=== PATIENT | male | born 1975 | race African-American/Black ===

== ENCOUNTER 2016-12-29 16:44 | Emergency (ER) | payer MEDICARE, OTHER ==
[2016-12-29 16:04] LABS: BASOPHILS 0.7 %; BASOPHILS ABSOLUTE 0.05 10/3/uL (0.0-0.16); EOSINOPHILS 1.8 %; EOSINOPHILS ABSOLUTE 0.13 10/3/uL (0.0-0.53); HEMATOCRIT 46.2 % (40.0-51.0); IMMATURE GRANULOCYTES 0.1 %; IMMATURE GRANULOCYTES ABSOLUTE 0.01 10/3/uL (0.0-0.11); LYMPHOCYTES 42.8 %; LYMPHOCYTES ABSOLUTE 3.07 10/3/uL (0.67-4.30); MEAN CORPUS HGB CONC 34.6 g/dL (32.0-36.0); MEAN CORPUSCULAR HEMOGLOB 30.2 pg (26.0-34.0); MEAN CORPUSCULAR VOLUME 87.2 fL (80-100); MEAN PLATELET VOLUME 10.6 fL (9.2-13.0); MONOCYTES 9.9 %; MONOCYTES ABSOLUTE 0.71 10/3/uL (0.21-1.20); NEUTROPHILS 44.7 %; PLATELET COUNT 245 10/3/uL (150-400); RBC DISTRIBUTION WIDTH 13.1 % (12.0-16.0); WHITE BLOOD CELLS 7.2 10/3/uL (4.5-10.5)
[2016-12-29 16:06] LABS: MANUAL DIFF NO %
[2016-12-29 16:18] LABS: CALCIUM, SERUM 8.5 MG/DL (8.5-10.4); CHLORIDE, SERUM 94 MMOL/L (96-112); CO2 (CARBON DIOXIDE) 33 MMOL/L (24-34); CREATININE 1.42 MG/DL (0.70-1.30); GFR AFRICAN AMERICAN 71 ML/MIN (>=60); GFR NON AFRICAN AMERICAN 61 ML/MIN (>=60); POTASSIUM, SERUM 3.3 MMOL/L (3.5-5.3); SODIUM, SERUM 138 MMOL/L (135-148)
[2016-12-29 16:19] LABS: BUN (BLOOD UREA NITROGEN) 10 MG/DL (6-23); GLUCOSE, SERUM 302 MG/DL (60-99)
== END 2016-12-29 20:14 | disposition home or self-care (01) ==
LOC: ER 16:44
PROVIDERS: Nurse Practitioner Family
DX: I10 Essential (primary) hypertension (principal); E87.6 Hypokalemia; E11.9 Type 2 diabetes mellitus without complications; F17.200 Nicotine dependence, unspecified, uncomplicated; Z91.19 Patient's noncompliance with other medical treatment and regimen
CPT/HCPCS: 73610-RT; 80048; 85025; 99285; A9270-GY

== ENCOUNTER 2017-01-10 17:17 | Inpatient (IN) | payer MEDICARE, OTHER ==
[2017-01-09 16:59] LABS: HEMATOCRIT 46.4 % (40.0-51.0); HEMOGLOBIN 16.1 g/dL (13.6-17.8); MEAN CORPUS HGB CONC 34.7 g/dL (32.0-36.0); MEAN CORPUSCULAR HEMOGLOB 30.1 pg (26.0-34.0); MEAN CORPUSCULAR VOLUME 86.9 fL (80-100); MEAN PLATELET VOLUME 11.1 fL (9.2-13.0); PLATELET COUNT 276 10/3/uL (150-400); RED CELL COUNT 5.34 10/6/uL (4.7-6.1); WHITE BLOOD CELLS 7.4 10/3/uL (4.5-10.5)
[2017-01-09 17:13] LABS: CALCIUM, SERUM 9.4 MG/DL (8.5-10.4); CHLORIDE, SERUM 92 MMOL/L (96-112); CO2 (CARBON DIOXIDE) 34 MMOL/L (24-34); CREATININE 1.89 MG/DL (0.70-1.30); GFR AFRICAN AMERICAN 50 ML/MIN (>=60); GFR NON AFRICAN AMERICAN 43 ML/MIN (>=60); SODIUM, SERUM 136 MMOL/L (135-148)
[2017-01-09 17:47] LABS: BUN (BLOOD UREA NITROGEN) 14 MG/DL (6-23); GLUCOSE, SERUM 426 MG/DL (60-99); POTASSIUM, SERUM 2.9 MMOL/L (3.5-5.3)
--- NOTE | ~2017-01-10 | CN ---
Consultation Report [facility] [address] [place]. [address] NAME: ANDRÉS MOODY : 75 STATUS : ADM IN PAT#: [id number] AGE: 41 ADM/REG DATE : 01/10/17 MR#: [id number] REPORT SERV DATE: 01/12/17 DICTATED BY: MARK FARIAS DATE: 01/11/17 REPORT STATUS : Draft TRANSCRIBED BY: EWELINA DATE: 01/11/17 INFECTIOUS DISEASE CONSULT DATE OF CONSULTATION: REASON FOR CONSULT: Chronic osteomyelitis. HISTORY OF PRESENT ILLNESS: A 41 years old black male with diabetes, hypertension, asthma who was admitted for chronic intermittent drainage from right lower leg. In 2012, he had an open right tibia and fibula fracture when he jumped over a fence and landed in dirt and grass. He was taken quickly to the hospital. It sounds like he had an ORIF at [facility]. He initially had an external fixator. At some point, he developed an infection. On 08/13/2013, he had an open wound to one of the hardware/pilon. This appeared to extend to the bone. We do not have details of what might have been cultured. He had bone debridement. There is a mention of getting Infectious Disease Consult although the patient does not recall seeing any infection specialist. In February of 2014, he had surgical debridement, again removal of most of the hardware. Multiple cultures were done as well. Again, I do not have any culture results or Infectious Disease consult. The patient remembers getting 6 weeks of IV vancomycin. The surgical debridement left him with a large wound, and [facility] Somewhere in the fall of 2013, he was incarcerated and sent to [facility]. While there, he was seen at [facility], and it sounds like he had wound care. I do not know if he had any more antibiotics. He was released in September 2016. He describes intermittent episodes of drainage at the previous right medial lower leg wound. There is no wound now, just fistulous openings. They were drained spontaneously, then close, and he would form a swollen area that will eventually burst open again. He does not sound like he has received antibiotics for this, and he has not seen his surgeon since the [facility] release. He had a visit to the emergency room here on the 12/29/2016, but there is no culture obtained at that time. There is an x-ray of the right ankle that showed areas of lucency within the tibia and the bone deformity from the old fracture. The patient was sent to see Dr. Goncalves at [facility] and from there he was sent for admission on the january. The patient describe recent bloody drainage from his leg, pain with weightbearing but no fever, no acute shortness of breath, nausea, diarrhea or urinary symptoms. Upon admission, his glucose was 420, potassium 2.9, creatinine 1.9. He was started on vancomycin and Zosyn. Blood cultures were done. Yesterday, the wound or the fistula started draining, and a culture was sent. An MRI showed an ulcer that extends to the tibia where there was cortical breakdown and fluid into the medullary canal. There is also some bone sequestrum and soft tissue edema. The patient has been afebrile. Further lab work showed a procalcitonin of 0.1 yesterday, creatinine improved to 1.6. Potassium is still low at 3.0, glucose still high. Liver enzymes within normal limits. CRP 12, WBC 6, and hemoglobin 14. PAST MEDICAL HISTORY: As I mentioned above plus left knee surgery as a teenager. He had a Consultation Report [address] [address] NAME: ANDRÉS MOODY : 75 STATUS : ADM IN [facility]#: [id number] AGE: 41 ADM/REG DATE : 01/10/17 MR#: [id number] REPORT SERV DATE: 01/12/17 DICTATED BY: MARK FARIAS DATE: 01/11/17 REPORT STATUS : Draft TRANSCRIBED BY: EWELINA DATE: 01/11/17 history of Chlamydia at some point. He reports no history of HIV or hepatitis. SOCIAL HISTORY: Apparently, he smokes and drinks alcohol. ALLERGIES: NONE. FAMILY HISTORY: Of diabetes, kidney disease, and hypertension. MEDICATIONS ON ADMISSION: Amlodipine, hydrochlorothiazide, lisinopril, and metformin. PHYSICAL EXAMINATION: GENERAL: He is alert, awake. LUNGS: Clear to auscultation. HEART: Distant sounds. Regular rhythm. ABDOMEN: Obese, nontender. EXTREMITIES: Left foot without any lesions. Peripheral IV without redness. Right lower leg medially, there is deformity with bone prominence and maybe some swelling. This area has a couple of small fistulous openings with purulent drainage. He has good range of motion in the ankle without pain. Right foot without any wounds. ASSESSMENT AND PLAN: 1. Probable chronic right medial distal tibial osteomyelitis. 2. History of right ankle open fracture 2012 treated with initially external fixator then internal fixation, the site got infected. He had couple of surgical debridement for it but they do not have any culture results or Infectious Disease notes. The patient remembers being treated with vancomycin for six weeks. 3. Diabetes and hypertension. I discussed with Dr. Lewis. I suggested surgical debridement. I would hold the antibiotics preop. I would obtain operative cultures at surgery time from the bone. Question if this is curable after probably long-term infection and whether he has enough stable bone. We will try to request records from [facility]. The patient also agreed to be screened for HIV and hepatitis. CHECO/EWELINA Mark Farias M.D. / [id number] CC: Todd Goncalves D.O.
--- NOTE | ~2017-01-10 | CN ---
Consultation Report [facility] [address] [place]. [address] NAME: ANDRÉS MOODY : 75 STATUS : DIS IN PAT#: [id number] AGE: 41 ADM/REG DATE : 01/10/17 MR#: [id number] REPORT SERV DATE: 01/12/17 DICTATED BY: LANRE MARTE DATE: 01/12/17 REPORT STATUS : Draft TRANSCRIBED BY: EWELINA DATE: 01/12/17 CONSULTATION DATE OF CONSULTATION: 01/11/2017 REASON FOR CONSULTATION: Right ankle osteomyelitis. HISTORY OF PRESENT ILLNESS: The patient is a 41-year-old male who describes a three and a half year history of a compound open ankle fracture. The patient describes external fixation, which was initially applied with debridement and then further ORIF following external fixation. The patient relates he had been on an antibiotics and had an "allergy" to the hardware. The patient had hardware removed and further debridements. The patient states that he was incarcerated for two years, and over two years, had received antibiotics during that time for the wound. The patient relates draining to the wound, but denies nausea, vomiting, fever, or chills. Denied red streaking. Relates mild discomfort to the leg. The patient has been on IV antibiotics since admission. He has had an MRI as well. PAST MEDICAL HISTORY: Includes uncontrolled diabetes and hypertension. SOCIAL HISTORY: Relates alcohol and tobacco use. ALLERGIES: NO KNOWN DRUG ALLERGIES. FAMILY HISTORY: Includes diabetes, hypertension. MEDICATIONS: Lengthy list of medications were reviewed in the chart. PAST SURGICAL HISTORY: Includes right ankle surgery. REVIEW OF SYSTEMS: No other pertinent findings on review of systems. Denies nausea, vomiting, fever, or chills. Denies chest pain. Relates minimal leg pain and draining wound as previously described. PHYSICAL EXAMINATION: GENERAL: The patient is seen at bedside, resting comfortably. The patient is a well- developed male, alert and oriented x3. LUNGS: Unlabored breathing with normal respiratory effort. HEENT: Normocephalic and atraumatic. No visible drainage. CARDIOVASCULAR: Palpable pedal pulses +2/4. Regular rate. Capillary refill time less than three seconds, digits 1 through 10 tested. ABDOMEN: Nondistended. DERMATOLOGICAL: Scarring to the anterior aspect of the right ankle with approximately 3 x [address] [facility] [address] [place]. [address] NAME: ANDRÉS MOODY : 75 STATUS : DIS IN PAT#: [id number] AGE: 41 ADM/REG DATE : 01/10/17 MR#: [id number] REPORT SERV DATE: 01/12/17 DICTATED BY: LANRE MARTE DATE: 01/12/17 REPORT STATUS : Draft TRANSCRIBED BY: EWELINA DATE: 01/12/17 mm draining purulent ulceration. There is probing present. There is no notable erythema. There is no increased skin temperature. There is no crepitus within the soft tissues present. MRI shows open sinus tract/sequestrum to the anterior distal tibia. Positive for osteomyelitis. Sedimentation rate 9. White count 6.3. ASSESSMENT: Chronic osteomyelitis with draining sinus tract/sequestrum, uncontrolled diabetes, smoker. Lengthy discussion with the patient discussing options including bone debridement with antibiotic bead placement. I have the antibiotics and right [id number] amputation. The wound itself is stable at this time, and there is no leukocytosis appreciated. We will consult Infectious Disease as well, and the patient will consider options, and I will follow up with the patient tomorrow. ALEYDA/EWELINA Tyrese Marte D.P.M. / [id number] CC: Todd Goncalves D.O.
--- NOTE | ~2017-01-10 | HP ---
History And Physical [place] [id number] [place]. [address] NAME: ANDRÉS HILLIARD : 75 STATUS : ADM IN [facility]#: [id number] AGE: 41 ADM/REG DATE : 01/10/17 MR#: [id number] REPORT SERV DATE: 01/10/17 DICTATED BY: DATE: REPORT STATUS : Draft TRANSCRIBED BY: MODL DATE: 01/10/17 DATE OF ADMISSION: 01/10/2017 The patient is admitted to the [facility] Hospitalist Service. CHIEF COMPLAINT: Right ankle pain and drainage. HISTORY OF PRESENT ILLNESS: Mr. Hilliard is a 41-year-old -[place] male, who sustained a trauma to his right ankle with what he thinks was a fracture of both tibia and fibula in 2012. This necessitated surgical fusion with hardware by Dr. William Buitrago at [facility]. Subsequently, the hardware became infected, requiring a revision and some hardware removal in 2013. The patient has had a chronic fracture deformity since then as well as some difficulty with wound healing along the medial aspect of the ankle. The patient recently has been incarcerated and with not receiving regular care for the ankle. He would notice some days where swelling and warmth were increased and where the pain was increasing. The patient was [facility] at the end of September, and his symptoms continued to get worse with occasional spontaneous drainage from the medial aspect of the right ankle. The patient went to the [facility] Emergency Department on 12/29/2016 to be evaluated and had labs and imaging, which were largely normal although "could not exclude chronic osteomyelitis." The patient does not have a primary care provider, and so, followup was arranged for him with Dr. Todd Goncalves in [place]. Their first appointment was this week, and Dr. Goncalves felt that the patient required direct admission to the Hospitalist Service for concerns of acute right ankle cellulitis with possible acute osteomyelitis or septic arthritis. The patient has not been on any antibiotics recently and states that it has not been since 2013 that he has required antibiotics. He denies a specific history of MRSA, although is unclear on what pathogens were involved in his prior hardware and skin and soft tissue infections. He denies any purulent drainage from the ankle, but has noted more of a serosanguineous or bloody-type discharge. He does have increased pain particularly when bearing weight and particularly along the lateral aspect of the ankle. The pain also extends somewhat into the heel and up the lateral part of the duckworth. He denies any fevers or chills and has not had any other systemic symptoms such as nausea, vomiting, fatigue, malaise, or weakness. He does have a history of diabetes and has not been keeping regular check on his blood sugars recently. His blood sugar when checked at Dr. Goncalves's office was in excess of 400. The patient takes metformin for blood sugars, but does not check his blood sugar regularly. He has never been on insulin. He was diagnosed with diabetes five years ago. Most recently, he has been experiencing polyuria and polydipsia as well as nocturia. He denies any changes in vision and has not recently experienced any neuropathic symptoms or been told that he has any difficulties with his kidneys. The patient is referred to the Hospitalist Service for the uncontrolled diabetes as well as History And Physical [address] [address] NAME: ANDRÉS HILLIARD TAYLA : 75 STATUS : ADM IN [facility]#: [id number] AGE: 41 ADM/REG DATE : 01/10/17 MR#: [id number] REPORT SERV DATE: 01/10/17 DICTATED BY: DATE: REPORT STATUS : Draft TRANSCRIBED BY: MODAlondra DATE: 01/10/17 acute concerns of cellulitis and osteomyelitis as above. PAST MEDICAL HISTORY: 1. Uncontrolled diabetes mellitus type 2, hemoglobin A1c 11.1. 2. Hypertension, recently out of medications, uncontrolled with blood pressure of 177/100 in the office today. 3. Ongoing tobacco abuse, smoking four to five cigarettes per day for the past 15 years. 4. History of asthma. 5. History of daily alcohol use. PAST SURGICAL HISTORY: 1. Includes the surgeries on the right ankle in 2012 and 2013 as outlined above. 2. Left knee surgery when the patient was 15 years old. ALLERGIES: NO KNOWN DRUG ALLERGIES. MEDICATIONS: Home medications include amlodipine 10 mg p.o. daily, hydrochlorothiazide 25 mg p.o. daily, lisinopril 40 mg p.o. daily, albuterol MDI two puffs every four to six hours as needed for shortness of breath. The patient has recently been re-initiated on these medications after running out of them for several months. SOCIAL HISTORY: The patient is currently living with his mother. He is on disability. He is smoking daily as above and drinking alcohol daily anywhere from two beers to sharing a pint of liquor with friends. He denies any illicit substance use. He was recently imprisoned for approximately a year and was released in September of 2016. FAMILY HISTORY: Pertinent for diabetes and hypertension. His mother is on hemodialysis. PHYSICAL EXAMINATION: VITAL SIGNS: Blood pressure 177/103, pulse 103, respiration rate 12, oxygen saturations 100% on room air, temperature 98.7. GENERAL: This is a well-developed, well-nourished, -[place] male, looking his stated, and in no acute distress. Alert and oriented in three dimensions. Pleasant. HEENT: Normocephalic, atraumatic. Pupils are equally round and reactive to light. No scleral icterus. No conjunctival pallor. No sinus tenderness to palpation. No nasal drainage. Oropharynx moist, pink. No posterior pharyngeal erythema nor exudate. NECK: Supple. No jugular venous distention. No lymphadenopathy. No bruits. CARDIOVASCULAR: Regular rate and rhythm. No murmurs, rubs or gallops. LUNGS: Clear to auscultation bilaterally. No wheezes, crackles, nor rhonchi. ABDOMEN: Soft, nontender, and nondistended with normoactive bowel sounds in four quadrants. No hepatosplenomegaly. EXTREMITIES: No cyanosis, clubbing, or edema of the left lower extremity. Right lower extremity shows chronic scarring and fracture deformities at the distal aspect of the right tibia and fibula. There is evidence of chronic scarring and hypopigmentation. There is tenderness to palpation of the lateral malleolus with pain on flexion and extension. There is no tenderness of the calcaneus through the arch of the foot. There is no erythema. On the medial aspect of the duckworth, there is an area of nonunion of the skin with some History And Physical [address] [address] NAME: ANDRÉS HILLIARD : 75 STATUS : ADM IN [facility]#: [id number] AGE: 41 ADM/REG DATE : 01/10/17 MR#: [id number] REPORT SERV DATE: 01/10/17 DICTATED BY: DATE: REPORT STATUS : Draft TRANSCRIBED BY: MODL DATE: 01/10/17 expressible serosanguineous drainage, but no purulent material and no odor. There is no overlying erythema. NEUROLOGIC: Cranial nerves 2 through 12 were tested and are intact. Deep tendon reflexes 2+ bilateral in brachioradialis and patellar tendons. Sensation intact to fine touch and temperature in all four limbs. Strength is 5/5 bilateral upper and lower extremities. LABORATORY DATA: CBC on 01/09/2017 with normal white blood cell count and normal hemoglobin. Normal platelets. Electrolyte panel on 01/09/2017 shows potassium 2.9, chloride 92, creatinine 1.9, glucose 426, calcium 9.4. Hemoglobin A1c 11.1. IMAGING: Plain films of the right ankle from 12/29/2016 show prominent old fracture deformity of the distal right tibia with poorly defined areas of lucency within the deformed tibia. Chronic osteomyelitis cannot be excluded. No prior radiographs are available. Impression on the medial cortex of the distal fibula by prominent tibial callus formation. Metallic foreign bodies or surgical artifact superimposed within the distal tibia and cuboid bone. IMPRESSION: 1. Right ankle cellulitis rule out septic arthritis or acute on chronic osteomyelitis. History of prior tibia-fibula fracture and hardware with subsequent revision. 2. Uncontrolled diabetes mellitus, type 2. 3. Uncontrolled hypertension. 4. History of medical noncompliance. 5. Tobacco abuse. 6. Alcohol use. PLAN: 1. The patient is admitted to [address] [place] [address], room 442, attending Dr. Nithin Leung. 2. Admission labs are pending including CBC, CMP, CRP, sedimentation rate, coags, lactic acid, procalcitonin, blood cultures x2. There is not currently any purulent drainage to the culture from the wound, but if present, we will do so. 3. MRI of the right ankle, pending. 4. Empiric vancomycin and Zosyn, pharmacy to assist in dosing. 5. Insulin drip with BMP and phos every four hours with electrolyte replacement. Scheduled potassium replacement given that it is currently low. 6. Home blood pressure medications have been resumed and p.r.n. hydralazine ordered as well. 7. [facility] protocol, observe closely for potential alcohol withdrawal. 8. DVT prophylaxis. 9. Full code. 40 minutes was spent in completion of the admission. AKS/MODL Nithin Drew History And Physical [address] [place]. [address] NAME: ANDRÉS HILLIARD : 75 STATUS : ADM IN PAT#: [id number] AGE: 41 ADM/REG DATE : 01/10/17 MR#: [id number] REPORT SERV DATE: 01/10/17 DICTATED BY: DATE: REPORT STATUS : Draft TRANSCRIBED BY: CARLOSL DATE: 01/10/17 Jose Leung / [id number] CC: Jose Walker M.D.
--- NOTE | ~2017-01-10 | DS ---
Discharge Summary [place] [id number] [place]. [address] NAME: ANDRÉS MOODY : 75 STATUS : DIS IN PAT#: [id number] AGE: 41 ADM/REG DATE : 01/10/17 MR#: [id number] REPORT SERV DATE: 01/13/17 DICTATED BY: CESARIO DOLL DATE: 01/12/17 REPORT STATUS : Draft TRANSCRIBED BY: MODL DATE: 01/12/17 ADMISSION DATE: 01/10/2017 DISCHARGE DATE: 01/12/2017 DISCHARGE DIAGNOSES: 1. Chronic left tibial osteomyelitis. 2. Cellulitis of the right lower extremity. 3. Uncontrolled type 2 diabetes mellitus. 4. Uncontrolled hypertension. 5. Chronic tobacco abuse. 6. Alcohol abuse. 7. Hypokalemia. 8. Hypomagnesemia. 9. Medical noncompliance. CONSULTANTS DURING THIS HOSPITALIZATION: Dr. Mark Ro of Infectious Disease and Dr. Bimal Lewis of Podiatry. INVASIVE PROCEDURES DONE DURING THIS HOSPITALIZATION: None. BRIEF HISTORY OF PRESENT ILLNESS: The patient is a 41-year-old male who presented with draining wound of his left lower extremity, so he was admitted. For detailed history and physical exam, please see note dictated by Dr. Nithin Leung on 01/10/2017. HOSPITAL COURSE: After being admitted to the hospital, this patient underwent an evaluation of his right lower extremity by an MRI, which showed chronic osteomyelitis of the distal tibia with a sinus tract to the skin. He also was noted to have cellulitis. He was placed on Zosyn and vancomycin. Appropriate consultations were done. He was noted to have acute kidney injury on chronic kidney disease. He was given IV fluids and hydration, and his kidney function has improved. Today's creatinine is 1.4, which is down from about 2.2. Dr. Ro saw the patient in consultation and recommended discontinuation of Zosyn, and we discontinued the vancomycin. His blood cultures have remained negative for the last two days. His erythema in his lower extremity has significantly improved. There is not much drainage from the sinus tract of his osteomyelitis. This patient was also offered surgery with debridement and placement of antibiotic beads versus amputation. This patient reported to Dr. Lewis and myself that he wants to be discharged, he wants to go home, think about his options, discussing with his family and pray about it, and then he will likely decide what to do with his infection in one week. I have discussed the risk of leaving the hospital with an active infection and that it may cause worsening of his symptoms, it may even cause . This patient understands and agrees and says that he will continue his medications in the home setting until next week when he would be able to decide what he wants to do regarding the osteomyelitis of his foot. DISPOSITION: Will be home. DISCHARGE ACTIVITY: Will be as tolerated by the patient. Discharge Summary [address] [address] NAME: ANDRÉS MOODY : 75 STATUS : DIS IN PAT#: [id number] AGE: 41 ADM/REG DATE : 01/10/17 MR#: [id number] REPORT SERV DATE: 01/13/17 DICTATED BY: CESARIO DOLL DATE: 01/12/17 REPORT STATUS : Draft TRANSCRIBED BY: EWELINA DATE: 01/12/17 DIET: I have discussed low-carb and no concentrated sweet diet with the patient. The museum educator did see him and a diet sheet was provided. DISCHARGE MEDICATIONS: Will be resumed per patient. However, given the infection, I have given him a prescription for Augmentin for 10 days until he decides what he wants to do with his lower extremity. FOLLOWUP: Will be with Dr. Todd Goncalves after discharge. ARMAND/EWELINA Cesario Doll M.D. / [id number] CC: Todd Goncalves D.O.
[2017-01-10 18:41] LABS: BASOPHILS 0.8 %; BASOPHILS ABSOLUTE 0.06 10/3/uL (0.0-0.16); EOSINOPHILS 1.4 %; EOSINOPHILS ABSOLUTE 0.11 10/3/uL (0.0-0.53); HEMATOCRIT 45.8 % (40.0-51.0); HEMOGLOBIN 15.8 g/dL (13.6-17.8); IMMATURE GRANULOCYTES 0.3 %; IMMATURE GRANULOCYTES ABSOLUTE 0.02 10/3/uL (0.0-0.11); LYMPHOCYTES ABSOLUTE 2.57 10/3/uL (0.67-4.30); MEAN CORPUS HGB CONC 34.5 g/dL (32.0-36.0); MEAN CORPUSCULAR HEMOGLOB 29.9 pg (26.0-34.0); MEAN CORPUSCULAR VOLUME 86.6 fL (80-100); MONOCYTES 9.5 %; MONOCYTES ABSOLUTE 0.74 10/3/uL (0.21-1.20); NEUTROPHILS ABSOLUTE 4.29 10/3/uL (2.02-8.40); PLATELET COUNT 263 10/3/uL (150-400); RBC DISTRIBUTION WIDTH 12.9 % (12.0-16.0); RED CELL COUNT 5.29 10/6/uL (4.7-6.1); WHITE BLOOD CELLS 7.8 10/3/uL (4.5-10.5)
[2017-01-10 18:42] LABS: MANUAL DIFF NO %
[2017-01-10 18:49] LABS: INTERNATIONAL NORMAL RATI 0.9 UNITS (-); PARTIAL THROMBO TIME 26.3 SEC (22.5-37.2); PROTIME (NOT ORD) 12.1 SEC (12.0-14.5)
[2017-01-10 18:57] LABS: A/G RATIO 0.7 (0.7-1.9); ALBUMIN 3.4 G/DL (3.5-5.0); ALKALINE PHOSPHATASE 92 U/L (45-117); C-REACTIVE PROTEIN 12.1 MG/L (<8.0); CALCIUM, SERUM 8.9 MG/DL (8.5-10.4); CHLORIDE, SERUM 90 MMOL/L (96-112); GLOBULIN 4.6 G/DL (2.5-4.1); SGPT(ALT) 34 U/L (5-65); SODIUM, SERUM 133 MMOL/L (135-148); TOTAL BILIRUBIN 0.4 MG/DL (0-1.2)
[2017-01-10 19:15] LABS: BUN (BLOOD UREA NITROGEN) 20 MG/DL (6-23); CO2 (CARBON DIOXIDE) 29 MMOL/L (24-34); CREATININE 2.83 MG/DL (0.70-1.30); GFR AFRICAN AMERICAN 31 ML/MIN (>=60); GFR NON AFRICAN AMERICAN 26 ML/MIN (>=60); POTASSIUM, SERUM 2.6 MMOL/L (3.5-5.3)
[2017-01-10 19:16] LABS: GLUCOSE, SERUM 468 MG/DL (60-99); SGOT(AST) 23 U/L (5-40)
[2017-01-10] MEDS ORDERED: HYDROCHLOROT25 MG PO (19:30)
[2017-01-10] MEDS ORDERED: LISINOPRIL40 MG PO (19:31)
[2017-01-10] MEDS ORDERED: PROVHFA INH (19:31)
[2017-01-10] MEDS ORDERED: GLUCOPHAGE1000 MG PO (19:31)
[2017-01-10] MEDS ORDERED: NORV10 PO (19:31)
[2017-01-10 19:48] LABS: SED RATE 9 MM/HR (0-15)
[2017-01-11 00:18] LABS: CALCIUM, SERUM 8.6 MG/DL (8.5-10.4); CHLORIDE, SERUM 94 MMOL/L (96-112); CO2 (CARBON DIOXIDE) 33 MMOL/L (24-34); PHOSPHORUS, SERUM 3.2 MG/DL (2.5-4.5); SODIUM, SERUM 137 MMOL/L (135-148)
[2017-01-11 00:23] LABS: BUN (BLOOD UREA NITROGEN) 25 MG/DL (6-23); CREATININE 2.12 MG/DL (0.70-1.30); GFR AFRICAN AMERICAN 43 ML/MIN (>=60); GFR NON AFRICAN AMERICAN 38 ML/MIN (>=60); GLUCOSE, SERUM 241 MG/DL (60-99); POTASSIUM, SERUM 2.8 MMOL/L (3.5-5.3)
[2017-01-11 05:30] LABS: BASOPHILS 0.6 %; BASOPHILS ABSOLUTE 0.04 10/3/uL (0.0-0.16); EOSINOPHILS 2.8 %; EOSINOPHILS ABSOLUTE 0.18 10/3/uL (0.0-0.53); HEMATOCRIT 43.8 % (40.0-51.0); HEMOGLOBIN 14.8 g/dL (13.6-17.8); IMMATURE GRANULOCYTES 0.2 %; IMMATURE GRANULOCYTES ABSOLUTE 0.01 10/3/uL (0.0-0.11); LYMPHOCYTES 42.2 %; LYMPHOCYTES ABSOLUTE 2.67 10/3/uL (0.67-4.30); MEAN CORPUS HGB CONC 33.8 g/dL (32.0-36.0); MEAN CORPUSCULAR HEMOGLOB 29.6 pg (26.0-34.0); MEAN CORPUSCULAR VOLUME 87.6 fL (80-100); MEAN PLATELET VOLUME 10.1 fL (9.2-13.0); MONOCYTES 10.1 %; MONOCYTES ABSOLUTE 0.64 10/3/uL (0.21-1.20); NEUTROPHILS 44.1 %; NEUTROPHILS ABSOLUTE 2.78 10/3/uL (2.02-8.40); PLATELET COUNT 225 10/3/uL (150-400); RBC DISTRIBUTION WIDTH 12.7 % (12.0-16.0); WHITE BLOOD CELLS 6.3 10/3/uL (4.5-10.5)
[2017-01-11 05:37] LABS: MANUAL DIFF NO %
[2017-01-11 05:45] LABS: BUN (BLOOD UREA NITROGEN) 20 MG/DL (6-23); CALCIUM, SERUM 8.5 MG/DL (8.5-10.4); CHLORIDE, SERUM 97 MMOL/L (96-112); CO2 (CARBON DIOXIDE) 30 MMOL/L (24-34); CREATININE 1.79 MG/DL (0.70-1.30); GFR AFRICAN AMERICAN 53 ML/MIN (>=60); GFR NON AFRICAN AMERICAN 46 ML/MIN (>=60); GLUCOSE, SERUM 246 MG/DL (60-99); PHOSPHORUS, SERUM 3.8 MG/DL (2.5-4.5); POTASSIUM, SERUM 2.8 MMOL/L (3.5-5.3); SODIUM, SERUM 138 MMOL/L (135-148)
[2017-01-11 12:00] LABS: BUN (BLOOD UREA NITROGEN) 18 MG/DL (6-23); CALCIUM, SERUM 8.5 MG/DL (8.5-10.4); CHLORIDE, SERUM 94 MMOL/L (96-112); CO2 (CARBON DIOXIDE) 30 MMOL/L (24-34); CREATININE 1.61 MG/DL (0.70-1.30); GFR AFRICAN AMERICAN 61 ML/MIN (>=60); GFR NON AFRICAN AMERICAN 52 ML/MIN (>=60); GLUCOSE, SERUM 239 MG/DL (60-99); PHOSPHORUS, SERUM 2.2 MG/DL (2.5-4.5)
[2017-01-11 12:01] LABS: SODIUM, SERUM 138 MMOL/L (135-148)
[2017-01-12 06:23] LABS: BASOPHILS 0.7 %; BASOPHILS ABSOLUTE 0.04 10/3/uL (0.0-0.16); EOSINOPHILS 2.7 %; EOSINOPHILS ABSOLUTE 0.16 10/3/uL (0.0-0.53); HEMATOCRIT 43.1 % (40.0-51.0); HEMOGLOBIN 14.6 g/dL (13.6-17.8); IMMATURE GRANULOCYTES 0.2 %; IMMATURE GRANULOCYTES ABSOLUTE 0.01 10/3/uL (0.0-0.11); LYMPHOCYTES 42.6 %; LYMPHOCYTES ABSOLUTE 2.53 10/3/uL (0.67-4.30); MEAN CORPUS HGB CONC 33.9 g/dL (32.0-36.0); MEAN CORPUSCULAR HEMOGLOB 29.7 pg (26.0-34.0); MEAN CORPUSCULAR VOLUME 87.6 fL (80-100); MEAN PLATELET VOLUME 10.6 fL (9.2-13.0); MONOCYTES 8.9 %; MONOCYTES ABSOLUTE 0.53 10/3/uL (0.21-1.20); NEUTROPHILS 44.9 %; NEUTROPHILS ABSOLUTE 2.67 10/3/uL (2.02-8.40); PLATELET COUNT 229 10/3/uL (150-400); RBC DISTRIBUTION WIDTH 12.8 % (12.0-16.0); RED CELL COUNT 4.92 10/6/uL (4.7-6.1); WHITE BLOOD CELLS 5.9 10/3/uL (4.5-10.5)
[2017-01-12 06:25] LABS: BUN (BLOOD UREA NITROGEN) 15 MG/DL (6-23); CALCIUM, SERUM 8.5 MG/DL (8.5-10.4); CHLORIDE, SERUM 99 MMOL/L (96-112); CO2 (CARBON DIOXIDE) 30 MMOL/L (24-34); CREATININE 1.43 MG/DL (0.70-1.30); GFR AFRICAN AMERICAN 70 ML/MIN (>=60); GFR NON AFRICAN AMERICAN 60 ML/MIN (>=60); GLUCOSE, SERUM 227 MG/DL (60-99); SODIUM, SERUM 139 MMOL/L (135-148)
[2017-01-12 06:26] LABS: POTASSIUM, SERUM 2.7 MMOL/L (3.5-5.3)
[2017-01-12 06:40] LABS: MANUAL DIFF NO %
[2017-01-12 10:32] LABS: HEPATITIS B SURFACE ANTIGEN NON-REACTIVE (NON-REACT)
[2017-01-12 10:54] LABS: HEPATITIS B CORE AB IGM NON-REACTIVE (NON-REAC); HEPATITIS C ANTIBODY NON-REACTIVE (NON-REACT)
[2017-01-12 10:55] LABS: HIV COMBO NON-REACTIVE (NON REAC)
[2017-01-12 10:56] LABS: HEP A ANTIBODY IGM NON-REACTIVE (NON-REACT)
== END 2017-01-12 12:25 | disposition home or self-care (01) | DRG 540 ==
LOC: 4SO 17:17
PROVIDERS: Hospitalist; Internal Medicine; Internal Medicine Infectious Disease
DX: M86.661 Other chronic osteomyelitis, right tibia and fibula (principal); N17.9 Acute kidney failure, unspecified; E11.65 Type 2 diabetes mellitus with hyperglycemia; E11.621 Type 2 diabetes mellitus with foot ulcer; E83.42 Hypomagnesemia; L03.115 Cellulitis of right lower limb; I10 Essential (primary) hypertension; Z91.120 Patient's intentional underdosing of medication regimen due to financial hardship; Z72.0 Tobacco use; Z72.89 Other problems related to lifestyle; J45.909 Unspecified asthma, uncomplicated; L98.494 Non-pressure chronic ulcer of skin of other sites with necrosis of bone; Z87.81 Personal history of (healed) traumatic fracture; E87.6 Hypokalemia
CPT/HCPCS: 36415; 73721-RT; 80048; 80053; 80074; 82962; 83036; 83605; 83735; 84100; 84145; 85025; 85027; 85610; 85652; 85730; 86140; 86592; 87040; 87070; 87077; 87186; 87205; 87389; A9270-GY; G0463; J2543; J3370